=== PATIENT | male | born 1955 | race African-American/Black ===

== ENCOUNTER 2018-03-27 23:05 | Emergency (ER) | payer SELFPAY ==
[~2018-03-27] VITALS: Ht 182.9 cm; Wt 88.6 kg
[2018-03-28] MEDS ORDERED: LIDOCAINE HCL 1% 10 ML VIAL INJ ONE (03:15)
[2018-03-28 04:18] VITALS: BP 167/88
== END 2018-03-28 04:47 | disposition home or self-care (01) ==
LOC: EMS 23:06
DX: L73.2 Hidradenitis suppurativa (principal)
CPT/HCPCS: 99283; J3490

== ENCOUNTER 2019-06-02 16:54 | Emergency (ER) | payer MEDICAID ==
[~2019-06-02] VITALS: Ht 185.4 cm; Wt 85.9 kg
[2019-06-02] MEDS ORDERED: HYDR25TA PO (17:13)
[2019-06-02] MEDS ORDERED: MethylPREDNISolone SOD SUCC 125 MG/2 ML VIAL IVP ONE (17:45)
[2019-06-02] MEDS ORDERED: AmLODIPine BESYLATE 5 MG TABLET PO ONE (17:45)
[2019-06-02] MEDS ORDERED: DiphenhydrAMINE HCL 50 MG/ML VIAL IVP ONE (17:45)
[2019-06-02 18:01] LABS: HEMATOCRIT 46.8 % (41-53); HEMOGLOBIN 15.7 g/dL (13.5-17.5); LYMPHOCYTES # (AUTO) 1.2 K/uL (1.0-4.8); LYMPHOCYTES % (AUTO) 23.1 % (22.0-44.0); MEAN CORPUSCULAR HEMOGLOBIN 31.1 pg (26.0-34.0); MEAN CORPUSCULAR HGB CONC 33.5 G/dL (31.0-37.0); MEAN CORPUSCULAR VOLUME 93 fL (80-100); MONOCYTES # (AUTO) 0.5 K/uL (0.1-1.0); MONOCYTES % (AUTO) 9.3 % (2.0-9.0); NEUTROPHILS # (AUTO) 3.4 K/uL (1.8-7.7); NEUTROPHILS % (AUTO) 65.6 % (40.0-70.0); PLATELET COUNT (AUTO) 234 K/uL (150-450); RED BLOOD CELL COUNT(AUTO) 5.04 MIL/uL (4.50-5.90); RED CELL DISTRIBUTION WIDTH 13.4 % (11.5-14.5)
[2019-06-02 18:16] LABS: ANION GAP 10 mmol/L (8-16); CALCIUM, TOTAL 9.5 mg/dL (8.8-10.5); CARBON DIOXIDE 27 mmol/L (22-29); CHLORIDE 103 mmol/L (98-107); CREATININE 1.54 mg/dL (0.60-1.30); GLOMERULAR FILTR. RATE CALC 55 mL/min (>60); GLUCOSE,RANDOM 168 mg/dL (70-110); POTASSIUM 3.2 mmol/L (3.5-5.1); SODIUM SERUM 140 mmol/L (136-145); UREA NITROGEN, BLOOD 17 mg/dL (7-18)
[2019-06-02 18:21] LABS: ALANINE AMINOTRANSFERASE 65 U/L (12-78); ALBUMIN 3.5 g/dL (3.4-5.0); ALKALINE PHOSPHATASE 65 U/L (46-116); ASPARTATE AMINOTRANSFERASE 45 U/L (15-37); BILIRUBIN,TOTAL 1.8 mg/dL (0.1-1.0); TOTAL PROTEIN, SERUM 8.3 g/dL (6.4-8.2)
[2019-06-02] MEDS ORDERED: LABETALOL HCL 5 MG/ML 20 ML VIAL IVP ONE (20:30)
[2019-06-02] MEDS ORDERED: NITROGLYCERIN 2% (1 GM=INCH) PACKET TP ONE (20:30)
[2019-06-02] MEDS ORDERED: 0.9% SODIUM CHLORIDE 10 ML SYRINGE IVP PRN (20:45)
[2019-06-02] MEDS ORDERED: ONDANSETRON HCL 4 MG/2 ML VIAL IVP PRN ×2 (20:45→23:00)
[2019-06-02] MEDS ORDERED: ACETAMINOPHEN 325 MG TABLET PO PRN ×2 (20:45→23:00)
[2019-06-02] MEDS ORDERED: POTASSIUM CHLORIDE 10% 40 MEQ/30 ML LIQUID UDCUP PO ONE (21:00)
[2019-06-02] MEDS ORDERED: DiphenhydrAMINE HCL 25 MG CAPSULE PO PRN (21:00)
[2019-06-02 21:34] VITALS: BP 167/122
[2019-06-02] MEDS ORDERED: HYDROCODONE/ACETAMINOPHEN 5-325 MG TABLET PO PRN (23:00)
[2019-06-02] MEDS ORDERED: MAGNESIUM HYDROXIDE SUSPENSION 30 ML UDCUP PO PRN (23:00)
[2019-06-02] MEDS ORDERED: MORPHINE SULFATE 2 MG/ML SYRINGE IVP PRN (23:00)
[2019-06-02] MEDS ORDERED: ZOLPIDEM TARTRATE 5 MG TABLET PO PRN (23:00)
[2019-06-02] MEDS ORDERED: BISACODYL 10 MG RECTAL RECTAL SUPPOSITORY PR PRN (23:00)
[2019-06-02] MEDS ORDERED: HydrALAZINE HCL 20 MG/ML VIAL IVP PRN (23:00)
[2019-06-03] MEDS ORDERED: NITROGLYCERIN 2% (1 GM=INCH) PACKET TP SCH
[2019-06-03] MEDS ORDERED: HEPARIN SODIUM,PORCINE 5,000 UNITS/ML VIAL SQ SCH
[2019-06-03] MEDS ORDERED: ASPIRIN 81 MG CHEWABLE TABLET PO SCH (09:00)
[2019-06-03] MEDS ORDERED: CARVEDILOL 3.125 MG TABLET PO SCH (09:00)
[2019-06-03] MEDS ORDERED: PANTOPRAZOLE SODIUM 40 MG DR TABLET PO SCH (09:00)
[2019-06-03] MEDS ORDERED: DOCUSATE SODIUM 100 MG CAPSULE PO SCH (09:00)
== END 2019-06-02 21:40 | disposition other institution (70) ==
LOC: EMS 16:55 → 5S 20:30 → UNDOADMIN 20:30 → EMS 21:40
DX: T63.441A Toxic effect of venom of bees, accidental (unintentional), initial encounter (principal); N17.9 Acute kidney failure, unspecified; I10 Essential (primary) hypertension; E87.6 Hypokalemia; Y92.89 Other specified places as the place of occurrence of the external cause
CPT/HCPCS: 36415; 80053; 84484; 85025; 93005; 96374; 96375; 99285; G0480; J1200; J2930; J3490; G0378